=== PATIENT | female | born 2000 | race Hispanic/Latino ===

== ENCOUNTER 2021-12-01 21:40 | Emergency (ER) | payer MEDICAID ==
[~2021-12-01] VITALS: Ht 160 cm; Wt 89.4 kg
[2021-12-01 22:02] VITALS: BP 128/81
[2021-12-01] MEDS ORDERED: BACITRACIN 1 EACH PACKET TP ONE (22:10)
[2021-12-01] MEDS ORDERED: BACI30OI6 TP (22:14)
== END 2021-12-01 22:33 | disposition home or self-care (01) ==
LOC: EDH 21:40
DX: S61.511A Laceration without foreign body of right wrist, initial encounter (principal); Z88.0 Allergy status to penicillin; W26.0XXA Contact with knife, initial encounter; Y93.89 Activity, other specified; Y92.090 Kitchen in other non-institutional residence as the place of occurrence of the external cause; Y99.8 Other external cause status
CPT/HCPCS: 12001

== ENCOUNTER 2021-12-09 20:52 | Emergency (ER) | payer MEDICAID ==
[~2021-12-09] VITALS: Ht 160 cm; Wt 79.4 kg
[~2021-12-09 20:52] MED LIST: BACI30OI6 TP
[2021-12-09 20:54] VITALS: BP 148/92
== END 2021-12-09 21:11 | disposition home or self-care (01) ==
LOC: EDH 20:52
DX: S61.511D Laceration without foreign body of right wrist, subsequent encounter (principal); Z88.0 Allergy status to penicillin; X58.XXXD Exposure to other specified factors, subsequent encounter
CPT/HCPCS: 99281